=== PATIENT | female | born 1985 | race Hispanic/Latino ===

== ENCOUNTER → 2016-09-25 | Outpatient (REF) | payer OTHER | LOC: M LAB REF 13:27 | PROVIDERS: ATTEND Advanced Practice Midwife | DX: Z36 Encounter for antenatal screening of mother (principal); Z3A.00 Weeks of gestation of pregnancy not specified ==

== ENCOUNTER 2016-10-12 06:08 | Outpatient (CLI) | payer OTHER ==
[2016-10-12] MEDS ORDERED: PRENTAB9 PO (12:03)
== END 2016-10-12 07:27 | disposition home or self-care (01) ==
LOC: M LDO 06:08
PROVIDERS: ATTEND Obstetrics & Gynecology
DX: O47.1 False labor at or after 37 completed weeks of gestation (principal); Z3A.39 39 weeks gestation of pregnancy

== ENCOUNTER 2016-10-12 11:21 | Inpatient (IN) | payer OTHER ==
[~2016-10-12] VITALS: Ht 160 cm; Wt 70.0 kg
[2016-10-12] MEDS ORDERED: PRENTAB9 PO (12:03)
[2016-10-12 12:44] LABS: MEAN CORPUSCULAR HGB CONC 33.4 g/dl (32.0-36.5); MEAN CORPUSCULAR VOLUME 89.9 fl (80.0-96.0); RED CELL DISTRIBUTION WIDTH 13.7 % (11.5-14.5); WHITE BLOOD COUNT 14.7 K/mm3 (4.0-10.0)
[2016-10-12] MEDS ORDERED: FENTANYL 2MCG/ML ROPIVACAINE 0.2% NACL 250 ML CADD As Ordered ONE (13:21)
--- NOTE | 2016-10-12 14:13 | HPE ---
DATE OF ADMISSION: 10/12/2016 REASON FOR ADMISSION: Labor. HISTORY AND HOSPITALIZATION COURSE: Mrs. Forrest is a 31-year-old, 4, para 2, who presents at 39 weeks 1 day estimated gestational age via her last menstrual period and confirmed by a first trimester ultrasound with complaints of contractions. She has been experiencing contractions throughout the morning and did have increase in intensity and frequency. She was initially evaluated this morning and was found to be 2 cm dilated, 75% effaced. She went home and returned several hours later for reevaluation, at which time she is 5 to 6 cm dilated, 90% effaced, -2 station. She reports active movement. Denies any vaginal bleeding or leakage of fluid. Her course has been unremarkable. She initiated care in the first trimester and it has been appropriate throughout. PAST MEDICAL HISTORY: History of anxiety. PAST SURGICAL HISTORY: None. OBSTETRICAL HISTORY: She is a 4, para 2. She has had two term vaginal deliveries. She has proven to 7 pounds 6 ounces. MEDICATIONS: vitamin. ALLERGIES: She has no known drug allergies. SOCIAL HISTORY: Denies any alcohol, tobacco or drug use. Lives at home with her , son, and daughter. PHYSICAL EXAMINATION: VITAL SIGNS: Stable. She is afebrile. She has a category 1 heart rate tracing with contractions on tocodynamometer. GENERAL APPEARANCE: Well appearing. No acute distress. LUNGS: Clear to auscultation bilaterally. CARDIOVASCULAR: Heart regular rate and rhythm. ABDOMEN: Soft and gravid. CERVICAL EXAM: She is 5 to 6 cm dilated, 90% effaced, -2 station. LABORATORY DATA: Blood type is O positive, antibody screen is negative, Rubella is immune is nonreactive, hepatitis surface antigen is negative, HIV is negative. Hepatitis C is nonreactive. Hepatitis surface antigen is negative. HIV is negative. Hepatitis C is nonreactive. Chlamydia and Gonorrhea screens were negative. She had a normal one hour Glucola of 85. She is Group B streptococcus (GBS) negative. ASSESSMENT: 1. Mrs. Forrest is a 31-year-old, 4, para 2 at 39 weeks 1 day estimated gestational age here in active labor. 2. Reassuring status. PLAN: 1. Admit to labor and delivery, CBC, RPR, type and screen. 2. The patient is a good candidate for an epidural. 3. Anticipate spontaneous vaginal delivery.
[2016-10-12] MEDS ORDERED: FENTANYL/ROPIVACAINE/NACL CADD 250 ML EPIDURAL SCH (14:45)
[2016-10-12] MEDS ORDERED: REFRIGERATOR IV KEYS XX PRN (14:45)
[2016-10-12] MEDS ORDERED: diphenhydrAMINE INJ 50MG/ML VIAL (J1200) IV PRN (14:45)
[2016-10-12] MEDS ORDERED: EPIDURAL COMMENT XX SCH (14:45)
[2016-10-12] MEDS ORDERED: EPIDURAL/PCA KEYS XX PRN (14:45)
[2016-10-12] MEDS ORDERED: ONDANSETRON 4MG/2ML VIAL (J2405) IV PRN (14:45)
[2016-10-12] MEDS ORDERED: OXYTOCIN 30 UNITS IN 0.9% NaCl 500ML IV BAG (J2590) As Ordered ONE (16:17)
[2016-10-12] MEDS ORDERED: OXYTOCIN DRIP 30 UNITS in APPROPRIATE DILUENT 1 EA IV SCH (17:19)
[2016-10-12] MEDS ORDERED: ANUSOL HC CREAM 30GM TOP PRN (17:30)
[2016-10-12] MEDS ORDERED: DIBUCAINE 1% OINTMENT 30GM TOP PRN (17:30)
[2016-10-12] MEDS ORDERED: METHYLERGONOVINE MALEATE 0.2 MG TAB PO PRN (17:30)
[2016-10-12] MEDS ORDERED: DOCUSATE SODIUM 100 MG CAP PO PRN (17:30)
[2016-10-12] MEDS ORDERED: RHOGAM 300 MCG (1500 IU) INJ (J2790) IM SCH (17:30)
[2016-10-12] MEDS ORDERED: MOM 30ML SUSPENSION UDC PO PRN (17:30)
[2016-10-12] MEDS ORDERED: MEASLES,MUMPS,RUBELLA VACCINE INJ (MMR-II) (90707) SC SCH (17:30)
--- NOTE | 2016-10-12 18:12 | DN ---
DATE OF DELIVERY: 10/12/2016 TIME OF : 1700. GENDER: Male. SCORES: 8 and 0. WEIGHT: 7 pounds 4 ounces at 3280 grams. ANESTHESIA: Epidural. ESTIMATED BLOOD LOSS: 300 mL. LACERATIONS: None. COUNTS: Five laparotomy sponges accounted for prior to and after the delivery. DELIVERY NOTE: On 10/12/2016, at 1700, Mrs. Forrest, a 31-year-old 4, now para 3, has a spontaneous vaginal delivery of a liveborn male infant, scores 8 and 9, weight 7 pounds 4 ounces, at 3280 grams. Head was delivered occiput anterior over intact perineum, followed by delivery of left anterior shoulder, right posterior shoulder, and corpus. Infant was handed to mom with good cry. Cord was clamped times two, was cut by the father of the baby under my direction. Cord blood was then obtained. Placenta was then drained and delivered grossly intact. A premixed bag of 500 mL of normal saline with 30 units of Pitocin was bolused along with uterine massage. The uterus was firm. In inspection, cervix, vagina, perineum were grossly intact and hemostatic. Mother and baby to recovery in stable condition.
[2016-10-12 20:26] VITALS: BP 127/67
[2016-10-12] MEDS: IBUPROFEN 800 MG TAB PO PRN (22:25)
[2016-10-13] MEDS: ACETAMINOPHEN 500 MG TAB PO PRN ×2 (04:03→18:03)
[2016-10-13 06:08] VITALS: BP 99/56
[2016-10-13] MEDS: IBUPROFEN 800 MG TAB PO PRN ×3 (06:16→21:54)
[2016-10-13] MEDS: PRENATAL VITAMIN TAB PO SCH (13:27)
[2016-10-13 18:14] VITALS: BP 109/73
[2016-10-14] MEDS: ACETAMINOPHEN 500 MG TAB PO PRN (04:44)
[2016-10-14 05:54] VITALS: BP_SYST 108; BP_SYST 120; BP_DIAS 59; BP_DIAS 80
[2016-10-14] MEDS ORDERED: IBUP-1114 PO (07:32)
[2016-10-14] MEDS ORDERED: ACET50TA PO (07:32)
[2016-10-14] MEDS ORDERED: COLA100C PO (07:32)
[2016-10-14] MEDS ORDERED: MILKSUS PO (07:32)
[2016-10-14] MEDS: IBUPROFEN 800 MG TAB PO PRN (08:09)
[2016-10-14] MEDS: PRENATAL VITAMIN TAB PO SCH (08:09)
== END 2016-10-14 09:00 | disposition home or self-care (01) | DRG 775 ==
LOC: M LDO 11:21 → M LDI 12:11 → M OBS 20:21
PROVIDERS: ADMIT Obstetrics & Gynecology; ATTEND Obstetrics & Gynecology
PROC: 10E0XZZ Delivery of Products of Conception, External Approach (ICD-10-PCS; principal; 2016-10-12)
DX: O80 Encounter for full-term uncomplicated delivery (principal); Z3A.39 39 weeks gestation of pregnancy; Z37.0 Single live birth